=== PATIENT | female | born 1945 | race Asian ===

== ENCOUNTER → 2022-05-22 | Day surgery (SDC) | payer MEDICARE ==
[~2022-05-22] MED LIST: AMLODIPINE BESY10 MG PO; ASPIRIN81 MG PO; CALCIUM D3 PO; CARVEDILOL12.5 MG PO; CRESTOR10 MG PO; ICOSAPENT ETHYL1 GM PO; IOPAMIDOL 200 MG/ML 20 ML VIAL IT ONE; LANSOPRAZOLE30 MG PO; LASIX20 MG PO; LEVOTHYROXINE75 MCG PO; LIDOCAINE HCL 1% 30ML-PF VIAL ONE; LIDOCAINE HCL 2% LOCAL INJ 5 ML SDV VIAL INJ ONE; LOSARTAN-HCTZ1 EAC2 PO; METFORMIN HCL500 MG PO; MULTI-VITAMIN1 EACH PO; NEURONTIN300 MG PO; NOVOLOG100 UNIT/1 SC; TRIAMCINOLONE ACET 40 MG/ML VIAL ONE; TRULICITY1.5 MG/0.5 SC; ULTRAM50 MG PO; VITAMIN B122500 MCG PO; VITAMIN B6100 MG/2.5 PO
[2022-05-22 08:50] VITALS: BP 134/73
== END | disposition home or self-care (01) ==
LOC: OR 08:02
PROVIDERS: ATTEND Physical Medicine & Rehabilitation Pain Medicine
DX: M46.1 Sacroiliitis, not elsewhere classified (principal); M47.896 Other spondylosis, lumbar region; M51.26 Other intervertebral disc displacement, lumbar region; M54.16 Radiculopathy, lumbar region; I10 Essential (primary) hypertension; E11.9 Type 2 diabetes mellitus without complications; E03.9 Hypothyroidism, unspecified; K21.9 Gastro-esophageal reflux disease without esophagitis; E78.5 Hyperlipidemia, unspecified; Z79.82 Long term (current) use of aspirin; Z79.4 Long term (current) use of insulin; Z79.899 Other long term (current) drug therapy
CPT/HCPCS: 36415; 82948; G0260; J2001 ×2; J3301; Q9967; 77003

== ENCOUNTER → 2022-07-03 | Day surgery (SDC) | payer MEDICARE ==
[~2022-07-03] MED LIST changes: +BUPIVACAINE 0.25% 30ML SDV ONE; -LIDOCAINE HCL 2% LOCAL INJ 5 ML SDV VIAL INJ ONE
[2022-07-03 07:50] VITALS: BP 119/67
== END | disposition home or self-care (01) ==
LOC: OR 05:36
PROVIDERS: ATTEND Physical Medicine & Rehabilitation Pain Medicine
DX: M46.1 Sacroiliitis, not elsewhere classified (principal); G57.01 Lesion of sciatic nerve, right lower limb; M47.816 Spondylosis without myelopathy or radiculopathy, lumbar region; I10 Essential (primary) hypertension; E11.21 Type 2 diabetes mellitus with diabetic nephropathy; E03.9 Hypothyroidism, unspecified; Z79.82 Long term (current) use of aspirin; Z79.4 Long term (current) use of insulin; Z79.899 Other long term (current) drug therapy
CPT/HCPCS: 20552; G0260; 36415; 77003; 82948; J2001; J3301; Q9967